=== PATIENT | female | born 1955 | race Caucasian/White ===

== ENCOUNTER 2018-01-20 11:27 | Observation (INO) ==
--- NOTE | 2018-01-20 11:38 | Emergency Department Note ---
Disposition Clinical Impression: ANANTH (acute kidney injury), Hyponatremia, Dehydration Crohns disease Qualifiers: Gastrointestinal tract location: unspecified location Digestive disease complication type: without complication Qualified Code(s): K50.90 - Crohn's disease, unspecified, without complications Diarrhea Qualifiers: Diarrhea type: unspecified type Qualified Code(s): R19.7 - Diarrhea, unspecified Disposition: Admitted As Inpatient Condition: Good Time of Disposition: 14:16 General Adult HPI - General Chief complaint: ED Abdominal Pain Stated complaint: abd pain, diarrhea Time Seen by Provider: 01/20/18 11:34 Source: patient Mode of arrival: ambulatory Limitations: no limitations Nursing Notes Reviewed: Yes Vital Signs Reviewed: Yes - History of Present Illness HPI Narrative: Male patient with a history of Crohn's disease presenting to emergency department with a four-day history of excessive watery stools. She denies any fevers or chills. No one else around her is sick. She denies any gross abdominal pain but does report an occasional cramping sensation when she is vomiting. She states that she has vomited around 4-5 times. She is insistent this is how her Crohn's presents. She states she has had to be admitted for her Crohn's before but this was with constipation related issues. Has reports that this is the most he is ever seen her have diarrhea. She has been trying to keep down bananas and Gatorade with no success. Patient is pleasant to talk to and does not have any gross complaints currently. We will get a basic lab workup on patient and provide her with fluids at this time. Pain Scale: 10 - Related Data Home Medications Medication Instructions Recorded Confirmed Cholecalciferol (Vitamin D3) 1,000 unit PO DAILY 02/26/15 01/20/18 [Vitamin D3] ClonazePAM [Klonopin] 1 mg PO BID 02/26/15 01/20/18 Estradiol [Divigel] 1 gm TD DAILY 02/26/15 01/20/18 Folic Acid 1 mg PO DAILY 02/26/15 01/20/18 Lisinopril [Zestril] 40 mg PO DAILY 02/26/15 01/20/18 Methotrexate [Otrexup] 15 mg PO WE 02/26/15 01/20/18 Venlafaxine HCl [Effexor Xr] 75 mg PO DAILY 02/26/15 01/20/18 Ranitidine HCl [Acid [employer]s] 150 mg PO BID 01/20/18 01/20/18 Vedolizumab [Entyvio (For 300 mg IV Q8W 01/20/18 01/20/18 Outpatient Infusion)] Allergies Allergy/AdvReac Type Severity Reaction Status Date / Time meperidine [From Demerol] AdvReac Vomiting Verified 01/20/18 11:32 All systems ED: reviewed and negative except as stated. Review of Systems: As Per HPI Constitutional: Denies: fever, chills ENT ED: Denies: congestion Cardiovascular: Denies: chest pain, syncope Respiratory: Denies: cough, dyspnea Gastrointestinal: Reports: abdominal pain (Occasional associated with retching.), nausea, vomiting, diarrhea (Watery nonbloody.) Genitourinary: Denies: urgency, dysuria, frequency Musculoskeletal: Reports: other (Cramping sensation throughout.). Denies: back pain, neck pain Integumentary: Denies: rash, abrasion Neurological: Denies: headache, weakness, numbness, paresthesias Past Medical History - Past Medical History Attestation: Yes The following information was validated with the patient. 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 Absent: scleral icterus - ENT ENT exam: normal exam, normal oropharynx, mucous membranes dry - Neck Neck exam: Present: normal inspection, full ROM, trachea midline - Chest Chest inspection: Present: normal inspection, symmetric chest wall rise. Absent: tenderness - Respiratory Respiratory exam: Present: normal lung sounds bilaterally. Absent: respiratory distress, accessory muscle use - Cardiovascular Cardiovascular exam: Present: regular rate, normal rhythm, normal heart sounds - Abdominal Exam Abdominal exam: Present: soft, Non-Tender. Absent: tenderness, distention, guarding, rebound, rigidity, organomegaly, Reynoso's sign, Rovsing's sign, tenderness at McBurney's Point - Extremities Exam Extremities exam: Present: normal inspection, full ROM, normal capillary refill. Absent: tenderness, pedal edema - Back Exam Back exam: Present: normal inspection, full ROM. Absent: tenderness - Neurological Exam Neurological exam: Present: alert, oriented X3 - Psychiatric Psychiatric exam: Present: normal affect, normal mood - Skin Skin exam: Present: warm, dry, intact, normal color. Absent: rash, cyanosis Course Course Narrative: Patient is insistent that she is not having a gross abdominal pain. She does report some cramping sensation especially when she is vomiting. She does have a history of Crohn's and a colectomy. She does not have an ostomy bag at this time. She is tachycardic on arrival. She also reports cramping to her whole body. The states he has been trying to keep bananas and Gatorade and the patient however she has been vomiting and has excessive amount of diarrhea so he believes that she may be dehydrated. She does appear clinically to be dehydrated. Mucous numbers are dry. Lab workup did show actually abnormalities such as hyponatremia. She does appear dehydrated and has a new AK eye. We did get a CT of patient's abdomen which did show some air-fluid levels in her lower abdomen. Patient's tachycardia did respond well to the fluid. She does have a history of hypertension and has not been taking her medications however she is mildly hypotensive at times. We will admit patient to the hospital for her new ANANTH as well as dehydration and hyponatremia. Vital Signs Pulse Rate 111 01/20/18 11:32 Respiratory Rate 18 01/20/18 11:32 Blood Pressure 103/58 01/20/18 11:32 O2 Sat by Pulse Oximetry 96 01/20/18 11:32 Temperature 98.3 F 01/20/18 11:48 Pulse Rate 93 01/20/18 12:55 Respiratory Rate 20 01/20/18 12:55 Blood Pressure 115/84 01/20/18 12:55 O2 Sat by Pulse Oximetry 100 01/20/18 12:55 Oxygen Delivery Oxygen Delivery Room Air Medical Decision Making - Medical Records Medical records reviewed: Yes I reviewed the patient's medical records. - Lab Data Lab results reviewed: Yes I reviewed the patient's lab results. Result diagrams: 01/20/18 11:47 01/20/18 11:47 Lab Results 01/20/18 01/20/18 01/20/18 Range/Units 11:47 11:47 11:48 WBC 13.3 H (4.3-11.1) K/mcL RBC 5.64 H (3.82-4.97) M/mcL Hgb 16.6 H (11.5-15.4) g/dL Hct 50.7 H (35.3-44.9) % MCV 89.9 (83.0-100.0) fL MCH 29.4 (28.0-33.3) pg MCHC 32.7 (31.6-35.5) g/dL RDW 14.3 (11.5-14.5) % Plt Count 457 H (140-400) K/mcL MPV 9.1 L (9.4-12.4) fL Immature Gran % 0.5 (0-4) % Seg Neutrophils % 76.9 % Lymphocytes % 11.4 % Monocytes % 10.3 % Eosinophils % 0.5 % Basophils % 0.4 % Neutrophils # 10.2 H (1.6-8.9) K/mcL Lymphocytes # 1.5 (0.6-4.6) K/mcL Monocytes # 1.4 H (0.0-1.3) K/mcL Eosinophils # 0.1 (0.0-0.6) K/mcL Basophils # 0.1 (0.0-0.2) K/mcL Sodium 130 L (136-145) mEq/L Potassium 3.8 (3.5-5.1) mEq/L Chloride 96 L (98-107) mEq/L Carbon Dioxide 19 L (23-29) mEq/L BUN 35 H (8-23) mg/dL Creatinine 1.93 H (0.60-1.20) mg/dL Est GFR ( Amer) 32 L (> 60) Est GFR (Non-Af Amer) 26 L (> 60) BUN/Creatinine Ratio 18 (6-26) Glucose 106 H (70-105) mg/dL Calculated Osmolality 278 L (280-300) Calcium 9.6 (8.6-10.3) mg/dL Total Bilirubin 1.7 H (0.3-1.0) mg/dL AST 41 H (13-39) Units/L ALT 28 (7-52) Units/L Alkaline Phosphatase 111 H (34-104) Units/L Serum Total Protein 9.0 H (6.4-8.9) g/dL Albumin 4.2 (3.5-5.7) g/dL Globulin 4.8 H (2.4-3.5) g/dL Albumin/Globulin Ratio 0.9 L (1.1-2.2) Lipase 92 H (11-82) Units/L Urine Color (Yellow) Urine Clarity (Clear) Urine pH (5.0-8.0) pH Units Ur Specific [place] (1.010-1.025) Urine Protein (Neg-Trace) mg/dL Urine Glucose (UA) (Normal) mg/dL Urine Ketones (Negative) mg/dL Urine Blood (Negative) Urine Nitrite (Negative) Urine Bilirubin (Negative) Urine Urobilinogen (Normal) mg/dL Ur Leukocyte Esterase (Negative) Urine Microscopic RBC (0-3) per hpf Urine Microscopic WBC (0-3) per hpf Urine Bacteria (None-Few) per hpf Hyaline Casts (None-Few) per lpf Ur Culture Indicated? (NO) 01/20/18 Range/Units 12:30 WBC (4.3-11.1) K/mcL RBC (3.82-4.97) M/mcL Hgb (11.5-15.4) g/dL Hct (35.3-44.9) % MCV (83.0-100.0) fL MCH (28.0-33.3) pg MCHC (31.6-35.5) g/dL RDW (11.5-14.5) % Plt Count (140-400) K/mcL MPV (9.4-12.4) fL Immature Gran % (0-4) % Seg Neutrophils % % Lymphocytes % % Monocytes % % Eosinophils % % Basophils % % Neutrophils # (1.6-8.9) K/mcL Lymphocytes # (0.6-4.6) K/mcL Monocytes # (0.0-1.3) K/mcL Eosinophils # (0.0-0.6) K/mcL Basophils # (0.0-0.2) K/mcL Sodium (136-145) mEq/L Potassium (3.5-5.1) mEq/L Chloride (98-107) mEq/L Carbon Dioxide (23-29) mEq/L BUN (8-23) mg/dL Creatinine (0.60-1.20) mg/dL Est GFR ( Amer) (> 60) Est GFR (Non-Af Amer) (> 60) BUN/Creatinine Ratio (6-26) Glucose (70-105) mg/dL Calculated Osmolality (280-300) Calcium (8.6-10.3) mg/dL Total Bilirubin (0.3-1.0) mg/dL AST (13-39) Units/L ALT (7-52) Units/L Alkaline Phosphatase (34-104) Units/L Serum Total Protein (6.4-8.9) g/dL Albumin (3.5-5.7) g/dL Globulin (2.4-3.5) g/dL Albumin/Globulin Ratio (1.1-2.2) Lipase (11-82) Units/L Urine Color Dark Yellow (Yellow) Urine Clarity Turbid A (Clear) Urine pH 5.0 (5.0-8.0) pH Units Ur Specific [place] 1.026 H (1.010-1.025) Urine Protein 100 H (Neg-Trace) mg/dL Urine Glucose (UA) Normal (Normal) mg/dL Urine Ketones Negative (Negative) mg/dL Urine Blood Moderate H (Negative) Urine Nitrite Negative (Negative) Urine Bilirubin Negative (Negative) Urine Urobilinogen Normal (Normal) mg/dL Ur Leukocyte Esterase Negative (Negative) Urine Microscopic RBC 0-3 (0-3) per hpf Urine Microscopic WBC 0-3 (0-3) per hpf Urine Bacteria Few (None-Few) per hpf Hyaline Casts Few (None-Few) per lpf Ur Culture Indicated? NO (NO) - Radiology Data Radiology results reviewed: Yes I reviewed the patient's radiology results. Abdomen/Pelvis CT 01/20/18 12:45 IMPRESSION: 1. Fluid in the colon and rectum compatible with the history of diarrhea. No colonic wall thickening to suggest colitis 2. Status post partial colectomy and hysterectomy 3. Air-fluid collections within a midline abdominal incision are of uncertain significance. Correlate with any findings of wound infection D/ / Darrel Pritchard MD / Darrel Pritchard MD Interpreting Provider: Darrel Pritchard MD - EKG Data EKG #1 EKG attestation: Yes I reviewed and interpreted this EKG.
[2018-01-20] MEDS ORDERED: Ondansetron 4 MG/2 ML VIAL IVP ONE (11:48)
[2018-01-20] MEDS ORDERED: Hyoscyamine SL 0.125 MG TAB.SUBL SL STA (11:48)
[2018-01-20] MEDS ORDERED: 0.9 % Sodium Chloride 1,000 ML IVC ONE ×2 (11:48→12:45)
[2018-01-20 12:05] LABS: Basophils # 0.1 K/mcL (0.0-0.2); Basophils % 0.4 %; Eosinophils # 0.1 K/mcL (0.0-0.6); Eosinophils % 0.5 %; Hematocrit 50.7 % (35.3-44.9); Hemoglobin 16.6 g/dL (11.5-15.4); Immature Granulocytes % 0.5 % (0-4); Lymphocytes # 1.5 K/mcL (0.6-4.6); Lymphocytes % 11.4 %; Mean Corpuscular HGB Conc 32.7 g/dL (31.6-35.5); Mean Corpuscular Hemoglobin 29.4 pg (28.0-33.3); Mean Corpuscular Volume 89.9 fL (83.0-100.0); Mean Platelet Volume 9.1 fL (9.4-12.4); Monocytes # 1.4 K/mcL (0.0-1.3); Monocytes % 10.3 %; Neutrophils # 10.2 K/mcL (1.6-8.9); Platelet Count 457 K/mcL (140-400); Red Blood Count 5.64 M/mcL (3.82-4.97); Red Cell Distribution Width 14.3 % (11.5-14.5); Segmented Neutrophils % 76.9 %
[2018-01-20 12:21] LABS: Albumin 4.2 g/dL (3.5-5.7); Albumin/Globulin Ratio 0.9 (1.1-2.2); Bilirubin,Total 1.7 mg/dL (0.3-1.0); Calcium 9.6 mg/dL (8.6-10.3); Globulin 4.8 g/dL (2.4-3.5); Potassium 3.8 mEq/L (3.5-5.1)
[2018-01-20 12:45] LABS: Bilirubin,Urine Negative (Negative); Blood,Urine Moderate (Negative); Clarity,Urine Turbid (Clear); Color,Urine Dark Yellow (Yellow); Glucose,Urine (UA) Normal (Normal); Ketones,Urine Negative (Negative); Leukocyte Esterase,Urine Negative (Negative); Nitrite,Urine Negative (Negative); Protein,Urine 100 mg/dL (Neg-Trace); Specific Gravity,Urine 1.026 (1.010-1.025); Urobilinogen,Urine Normal (Normal)
[2018-01-20 12:55] LABS: Hyaline Casts,Urine Few per lpf (None-Few); RBC,Urine 0-3 per hpf (0-3); WBC,Urine 0-3 per hpf (0-3)
[2018-01-20 12:56] LABS: Bacteria,Urine Few per hpf (None-Few)
--- NOTE | 2018-01-20 14:28 | Emergency Department Note ---
Disposition Clinical Impression: ANANTH (acute kidney injury), Hyponatremia, Dehydration Crohns disease Qualifiers: Gastrointestinal tract location: unspecified location Digestive disease complication type: without complication Qualified Code(s): K50.90 - Crohn's disease, unspecified, without complications Diarrhea Qualifiers: Diarrhea type: unspecified type Qualified Code(s): R19.7 - Diarrhea, unspecified Disposition: Admitted As Inpatient Condition: Good Forms: ED Satisfaction Letter, Work/School Release General Adult HPI - General Chief complaint: ED Abdominal Pain Stated complaint: abd pain, diarrhea Time Seen by Provider: 01/20/18 11:34 Source: patient Mode of arrival: ambulatory Limitations: no limitations - History of Present Illness Pain Scale: 10 - Related Data Home Medications Medication Instructions Recorded Confirmed Adalimumab [Humira Pen Crohn-Uc-Hs Q2W 02/26/15 Starter] Amoxicillin/Clavulanate [Augmentin] 875 mg PO BIDWM 02/26/15 02/26/15 Cholecalciferol (Vitamin D3) 1,000 unit PO DAILY 02/26/15 02/26/15 [Vitamin D3] ClonazePAM [Klonopin] 1 mg PO BID 02/26/15 02/26/15 Esomeprazole Magnesium [Nexium] 40 mg PO DAILY 02/26/15 02/26/15 Estradiol [Divigel] 1 gm TD DAILY 02/26/15 02/26/15 Folic Acid 1 mg PO DAILY 02/26/15 02/26/15 Lisinopril [Zestril] 40 mg PO DAILY 02/26/15 02/26/15 Methotrexate [Otrexup] 15 mg PO QWEEK 02/26/15 02/26/15 Omega3,5,6,7,9 No.1/[place] Oil 1 cap PO DAILY 02/26/15 02/26/15 [Complete [place] Softgel] Venlafaxine HCl [Effexor Xr] 75 mg PO DAILY 02/26/15 02/26/15 Previous Rx's Medication Instructions Recorded Metoprolol [Lopressor] 25 mg PO BID #30 tablet 03/03/15 Allergies Allergy/AdvReac Type Severity Reaction Status Date / Time meperidine [From Demerol] AdvReac Vomiting Verified 01/20/18 11:32 Constitutional: Denies: fever, chills Past Medical History - Past Medical History Medical history: Reports: hypertension, kidney stones, other (CROHN'S DISEASE) Surgical history: Reports: colectomy, KEMAR/BSO Psychiatric history: Reports: anxiety 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, bilateral tubal ligation - Social History Smoking Status: Never smoker Smokeless Tobacco Status: No Alcohol use: Reports: none Drug use: Reports: none Physical Exam - General Limitations: no limitations General appearance: alert, in no apparent distress Course Vital Signs Pulse Rate 111 01/20/18 11:32 Respiratory Rate 18 01/20/18 11:32 Blood Pressure 103/58 01/20/18 11:32 O2 Sat by Pulse Oximetry 96 01/20/18 11:32 Temperature 98.3 F 01/20/18 11:48 Pulse Rate 93 01/20/18 12:55 Respiratory Rate 20 01/20/18 12:55 Blood Pressure 115/84 01/20/18 12:55 O2 Sat by Pulse Oximetry 100 01/20/18 12:55 Oxygen Delivery Oxygen Delivery Room Air Medical Decision Making - Lab Data Result diagrams: 01/20/18 11:47 01/20/18 11:47 Lab Results 01/20/18 01/20/18 01/20/18 Range/Units 11:47 11:47 11:48 WBC 13.3 H (4.3-11.1) K/mcL RBC 5.64 H (3.82-4.97) M/mcL Hgb 16.6 H (11.5-15.4) g/dL Hct 50.7 H (35.3-44.9) % MCV 89.9 (83.0-100.0) fL MCH 29.4 (28.0-33.3) pg MCHC 32.7 (31.6-35.5) g/dL RDW 14.3 (11.5-14.5) % Plt Count 457 H (140-400) K/mcL MPV 9.1 L (9.4-12.4) fL Immature Gran % 0.5 (0-4) % Seg Neutrophils % 76.9 % Lymphocytes % 11.4 % Monocytes % 10.3 % Eosinophils % 0.5 % Basophils % 0.4 % Neutrophils # 10.2 H (1.6-8.9) K/mcL Lymphocytes # 1.5 (0.6-4.6) K/mcL Monocytes # 1.4 H (0.0-1.3) K/mcL Eosinophils # 0.1 (0.0-0.6) K/mcL Basophils # 0.1 (0.0-0.2) K/mcL Sodium 130 L (136-145) mEq/L Potassium 3.8 (3.5-5.1) mEq/L Chloride 96 L (98-107) mEq/L Carbon Dioxide 19 L (23-29) mEq/L BUN 35 H (8-23) mg/dL Creatinine 1.93 H (0.60-1.20) mg/dL Est GFR ( Amer) 32 L (> 60) Est GFR (Non-Af Amer) 26 L (> 60) BUN/Creatinine Ratio 18 (6-26) Glucose 106 H (70-105) mg/dL Calculated Osmolality 278 L (280-300) Calcium 9.6 (8.6-10.3) mg/dL Total Bilirubin 1.7 H (0.3-1.0) mg/dL AST 41 H (13-39) Units/L ALT 28 (7-52) Units/L Alkaline Phosphatase 111 H (34-104) Units/L Serum Total Protein 9.0 H (6.4-8.9) g/dL Albumin 4.2 (3.5-5.7) g/dL Globulin 4.8 H (2.4-3.5) g/dL Albumin/Globulin Ratio 0.9 L (1.1-2.2) Lipase 92 H (11-82) Units/L Urine Color (Yellow) Urine Clarity (Clear) Urine pH (5.0-8.0) pH Units Ur Specific [place] (1.010-1.025) Urine Protein (Neg-Trace) mg/dL Urine Glucose (UA) (Normal) mg/dL Urine Ketones (Negative) mg/dL Urine Blood (Negative) Urine Nitrite (Negative) Urine Bilirubin (Negative) Urine Urobilinogen (Normal) mg/dL Ur Leukocyte Esterase (Negative) Urine Microscopic RBC (0-3) per hpf Urine Microscopic WBC (0-3) per hpf Urine Bacteria (None-Few) per hpf Hyaline Casts (None-Few) per lpf Ur Culture Indicated? (NO) 01/20/18 Range/Units 12:30 WBC (4.3-11.1) K/mcL RBC (3.82-4.97) M/mcL Hgb (11.5-15.4) g/dL Hct (35.3-44.9) % MCV (83.0-100.0) fL MCH (28.0-33.3) pg MCHC (31.6-35.5) g/dL RDW (11.5-14.5) % Plt Count (140-400) K/mcL MPV (9.4-12.4) fL Immature Gran % (0-4) % Seg Neutrophils % % Lymphocytes % % Monocytes % % Eosinophils % % Basophils % % Neutrophils # (1.6-8.9) K/mcL Lymphocytes # (0.6-4.6) K/mcL Monocytes # (0.0-1.3) K/mcL Eosinophils # (0.0-0.6) K/mcL Basophils # (0.0-0.2) K/mcL Sodium (136-145) mEq/L Potassium (3.5-5.1) mEq/L Chloride (98-107) mEq/L Carbon Dioxide (23-29) mEq/L BUN (8-23) mg/dL Creatinine (0.60-1.20) mg/dL Est GFR ( Amer) (> 60) Est GFR (Non-Af Amer) (> 60) BUN/Creatinine Ratio (6-26) Glucose (70-105) mg/dL Calculated Osmolality (280-300) Calcium (8.6-10.3) mg/dL Total Bilirubin (0.3-1.0) mg/dL AST (13-39) Units/L ALT (7-52) Units/L Alkaline Phosphatase (34-104) Units/L Serum Total Protein (6.4-8.9) g/dL Albumin (3.5-5.7) g/dL Globulin (2.4-3.5) g/dL Albumin/Globulin Ratio (1.1-2.2) Lipase (11-82) Units/L Urine Color Dark Yellow (Yellow) Urine Clarity Turbid A (Clear) Urine pH 5.0 (5.0-8.0) pH Units Ur Specific [place] 1.026 H (1.010-1.025) Urine Protein 100 H (Neg-Trace) mg/dL Urine Glucose (UA) Normal (Normal) mg/dL Urine Ketones Negative (Negative) mg/dL Urine Blood Moderate H (Negative) Urine Nitrite Negative (Negative) Urine Bilirubin Negative (Negative) Urine Urobilinogen Normal (Normal) mg/dL Ur Leukocyte Esterase Negative (Negative) Urine Microscopic RBC 0-3 (0-3) per hpf Urine Microscopic WBC 0-3 (0-3) per hpf Urine Bacteria Few (None-Few) per hpf Hyaline Casts Few (None-Few) per lpf Ur Culture Indicated? NO (NO) Attestation Statement - Attestation Attestation: I examined this patient and my medical decision-making was reviewed with the Resident Physician, Dr. Mcgee. I agree with the documented findings, disposition and treatment plan as described except to the extent set forth below. Patient is a 62-year-old female with a history of Crohn's disease managed out of the [facility] who presents today with complaints of a four-day history of nausea vomiting diarrhea with watery stools. Patient's complaining of just some generalized weakness and fatigue no focal symptoms, denies any chest pain pressure or heaviness, no shortness of breath, no preceding URI or cough, denies any urinary symptoms or flank pain. Patient currently denies any associated abdominal pains that she is appreciated occasional cramping preceding her vomiting episodes. states she has been attempting fluids at home and has been trying Gatorade and bananas but she has not been able tolerate anything by mouth. Patient has had colectomy in the past secondary to her Crohn's. Patient is currently on methotrexate in so receives IV infusions every 4-6 weeks in [place] by her GI physician. I agree with patient's physical exam findings as documented. Patient with mild tachycardia but stable blood pressure and afebrile on arrival. On my exam patient's abdomen was soft nontender nondistended positive bowel sounds no perineal signs were appreciated no flank tenderness appreciated. Patient was in no acute distress. Patient underwent full lab evaluation urinalysis and CT imaging of her abdomen and pelvis. Patient received 2 L of IV fluids with antiemetics and anti- spasmodics administered for which she is received significant relief. Patient has had no vomiting while in the emergency department. Patient's labs show evidence of [place] I likely secondary to dehydration or prerenal changes. CT abdomen and pelvis was negative for any acute intra-abdominal pathology or obstruction. No bowel wall thickening. Patient will be admitted for ongoing IV hydration antiemetics and serial abdominal exams. Case will be discussed with the hospitalist service patient remains hemodynamically stable at this time and has had no vomiting up to this point in the ED.
[2018-01-20] MEDS ORDERED: 0.9 % Sodium Chloride 1,000 ML IVC SCH (15:00)
[2018-01-20] MEDS ORDERED: Ondansetron 4 MG/2 ML VIAL IVP PRN (16:16)
[2018-01-20] MEDS ORDERED: Naloxone 0.4 MG/ML INJ IVP PRN (16:16)
--- NOTE | 2018-01-20 16:29 | Internal Med History&Physical ---
Date of Encounter: 01/20/18 Time of Encounter: 15:35 Internal Medicine - H&P: HPI Chief complaint: Diarrhea Admitted From: Home Plans for Post Hospital Care: Home History of present illness: Ms. Nicole is a 62 year old female present to ER for nausea vomiting and diarrhea for 4 days. Past medical history is significant for hypertension, Crohn disease. Patient has history of Crohn disease for about 41 years, with chronic diarrhea on and off. In last 4 days, patient said the frequency of diarrhea has increased, patient also has increased the nausea and have vomited 4 times. The vomiting is stomach content, no blood in it. Patient denies fever, runny nose, or cough. She denies abdominal pain. Patient starts to have muscle ache and spasm, which she experienced previously when she has dehydration. Patient came to ER for further management. In the emergency room, she was found acute renal failure with elevated creatinine to 1.9. Patient was given IV hydration and her symptoms have significantly improved after hydration. Patient working with [facility] for her Crohn disease and was on Entyvio, generally doing well and has appointment for next Monday. Pt has multiple abd surgeries and last hany carie was 12 years ago, denies incision pain/redness/tenderness. Past Med Surg Social Fam HX - Past Medical History Medical history: hypertension, kidney stones, other (CROHN'S DISEASE) Additional medical history: IBD Psychiatric history: anxiety - Past Surgical History Surgical History: colectomy, KEMAR/BSO Additional surgical history: Colon removal/ reversal. - Social History Smoking Status: Never smoker Smokeless Tobacco Status: No Alcohol use: none Drug use: none - Family History Mother Family Member Ethnicity: Non- Living Status: Hx Family Cardiac Disorders: No Hx Family Respiratory Disorders: No Hx Family Cancer: No Hx Family GI Disorders: No Hx Family Endocrine Disorder: No Hx Family Neuromuscular Disorders: No Hx Family Neurologic Disorders: Yes (Aneursym) Hx Family HEENT Disorders: No Hx Family Autoimmune Disorders: No Father Living Status: Hx Family Neurologic Disorders: Yes (PARKINSONS) Internal Medicine - H&P: Meds Cholecalciferol (Vitamin D3) [Vitamin D3] 1,000 unit PO DAILY 02/26/15 [History] ClonazePAM [Klonopin] 1 mg PO BID 02/26/15 [History] Estradiol [Divigel] 1 gm TD DAILY 02/26/15 [History] Folic Acid 1 mg PO DAILY 02/26/15 [History] Lisinopril [Zestril] 40 mg PO DAILY 02/26/15 [History] Methotrexate [Otrexup] 15 mg PO WE 02/26/15 [History] Venlafaxine HCl [Effexor Xr] 75 mg PO DAILY 02/26/15 [History] Ranitidine HCl [Acid Ski Lift Operator] 150 mg PO BID 01/20/18 [History] Vedolizumab [Entyvio (For Outpatient Infusion)] 300 mg IV Q8W 01/20/18 [History] Allergy/AdvReac Type Severity Reaction Status Date / Time meperidine [From Demerol] AdvReac Vomiting Verified 01/20/18 11:32 All Systems PM: A 10-system review of systems was performed and is negative for pertinent findings except as documented above in the HPI. - Constitutional Vitals: Temp Pulse Resp BP Pulse Ox 98.3 F 87 18 134/59 96 01/20/18 11:48 01/20/18 15:00 01/20/18 15:46 01/20/18 15:46 01/20/18 15:00 General appearance: Present: A&O X 3, morbidly obese, no acute distress, answers questions appropriately Exam: in NAD - Head Head exam: Present: atraumatic, normocephalic - Eye Eye exam: Present: PERRL, conjuntiva pink, sclera anicteric Pupils: Present: PERRL - Neck Neck exam general surgery: Present: supple, trachea midline. Absent: lymphadenopathy - Respiratory Respiratory exam: Present: CTAB. Absent: accessory muscle use, rales, rhonchi, wheezes - Cardiovascular Cardiovascular exam: Present: RRR, +S1, +S2. Absent: diastolic murmur, gallop, rubs, systolic murmur - GI/Abdominal GI/Abdominal exam: Present: normal bowel sounds, soft, no peritoneal signs. Absent: distended, tenderness - Extremities Exam Extremities exam: Present: warm, radial pulses palpable and symmetrical. Absent: calf tenderness, cyanotic, pedal edema - Neurological Exam Neurological exam: Present: CN II-XII intact, oriented X3, no focal deficits. Absent: pronater drift, facial droop, speech deficit - Skin Skin exam: Present: dry, intact Internal Med - H&P Results - Labs CBC & Chem 7: 01/20/18 11:47 01/20/18 11:47 Labs: Short CBC 01/20/18 Range/Units 11:47 WBC 13.3 H (4.3-11.1) K/mcL Hgb 16.6 H (11.5-15.4) g/dL Hct 50.7 H (35.3-44.9) % Plt Count 457 H (140-400) K/mcL Neutrophils # 10.2 H (1.6-8.9) K/mcL BMP 01/20/18 11:47 Sodium 130 L Potassium 3.8 Chloride 96 L Carbon Dioxide 19 L BUN 35 H Creatinine 1.93 H Glucose 106 H Calcium 9.6 Liver Function 01/20/18 Range/Units 11:47 Total Bilirubin 1.7 H (0.3-1.0) mg/dL AST 41 H (13-39) Units/L ALT 28 (7-52) Units/L Alkaline Phosphatase 111 H (34-104) Units/L Albumin 4.2 (3.5-5.7) g/dL Urine 01/20/18 Range/Units 12:30 Urine Color Dark Yellow (Yellow) Urine Clarity Turbid A (Clear) Urine pH 5.0 (5.0-8.0) pH Units Ur Specific [place] 1.026 H (1.010-1.025) Urine Protein 100 H (Neg-Trace) mg/dL Urine Glucose (UA) Normal (Normal) mg/dL - Impressions ITS Impressions Abdomen/Pelvis CT 01/20/18 12:45 IMPRESSION: 1. Fluid in the colon and rectum compatible with the history of diarrhea. No colonic wall thickening to suggest colitis 2. Status post partial colectomy and hysterectomy 3. Air-fluid collections within a midline abdominal incision are of uncertain significance. Correlate with any findings of wound infection D/ / Darrel Pritchard MD / Darrel Pritchard MD Interpreting Provider: Darrel Pritchard MD - Assessment and plan (1) Crohns disease Current Visit: Yes Status: Chronic Assessment and plan: Patient has Crohns disease for many years, [facility] Patient said she will continue outpatient follow-up with [place]. Came to our ER for acute dehydration. - Will not change Crohns treatment regime at this point, if pt's symptoms improved, will d/c her home and cont [facility] follow up. If not improve or getting worse, consider GI consult. Qualifiers: Gastrointestinal tract location: unspecified location Digestive disease complication type: without complication Qualified Code(s): K50.90 - Crohn's disease, unspecified, without complications (2) DVT prophylaxis Current Visit: No Status: Acute Assessment and plan: Patient is expected of short hospitalization. Ambulating well. No anticoagulation placed. (3) Hypertension Current Visit: No Status: Chronic Assessment and plan: BP is not high. Hold home medication lisinopril because of ANANTH. Qualifiers: Hypertension type: essential hypertension Qualified Code(s): I10 - Essential (primary) hypertension (4) Diarrhea Current Visit: Yes Status: Acute Assessment and plan: Chronic diarrhea, nonbloody, due to Crohns Disease. continue hydration patient. Symptomatic treatment as needed. Qualifiers: Diarrhea type: unspecified type Qualified Code(s): R19.7 - Diarrhea, unspecified (5) ANANTH (acute kidney injury) Current Visit: Yes Status: Acute Assessment and plan: Most likely due to dehydration. Will continue IV fluid and closely follow-up renal function. Avoid nephrotoxic medications. CT abd done, no hydronephorosis. (6) Dehydration Current Visit: Yes Status: Acute Assessment and plan: Continue IV fluid. Correct electrolytes abnormality. Zofran when necessary for nausea. - Time Spent With Patient Total time spent is greater than 50% in coordination of care (as documented) at patient's floor/unit and/or counseling patient: 30 min 25 - 35 minutes
[2018-01-20 16:37] LABS: Magnesium 2.4 mg/dL (1.6-2.6); Phosphorous 5.7 mg/dL (2.7-4.5)
[2018-01-20] MEDS: Ringers Solution, Lactated 1,000 ML IVC SCH (18:27)
[2018-01-20] MEDS: clonazePAM 1 MG TABLET PO SCH (20:17)
[2018-01-20] MEDS: Famotidine 20 MG TABLET PO SCH (20:17)
[2018-01-21] MEDS: Ringers Solution, Lactated 1,000 ML IVC SCH (02:07)
[2018-01-21 04:50] LABS: Basophils % 0.4 %; Eosinophils # 0.1 K/mcL (0.0-0.6); Eosinophils % 0.9 %; Hematocrit 45.6 % (35.3-44.9); Immature Granulocytes % 0.3 % (0-4); Lymphocytes # 0.9 K/mcL (0.6-4.6); Lymphocytes % 8.8 %; Mean Corpuscular HGB Conc 32.5 g/dL (31.6-35.5); Mean Corpuscular Hemoglobin 29.4 pg (28.0-33.3); Mean Corpuscular Volume 90.5 fL (83.0-100.0); Mean Platelet Volume 9.2 fL (9.4-12.4); Monocytes # 0.9 K/mcL (0.0-1.3); Monocytes % 8.9 %; Platelet Count 370 K/mcL (140-400); Red Blood Count 5.04 M/mcL (3.82-4.97); Segmented Neutrophils % 80.7 %
[2018-01-21 04:52] LABS: Hemoglobin 14.8 g/dL (11.5-15.4)
[2018-01-21 05:09] LABS: Calcium 8.3 mg/dL (8.6-10.3); Phosphorous 4.2 mg/dL (2.7-4.5); Potassium 3.8 mEq/L (3.5-5.1)
[2018-01-21 07:13] VITALS: BP 107/73
[2018-01-21] MEDS ORDERED: Venlafaxine XR (24 HR) 75 MG CAP.ER.24H PO SCH (09:00)
[2018-01-21] MEDS ORDERED: Cholecalciferol (D-3) 1,000 UNIT TABLET PO SCH (09:00)
[2018-01-21] MEDS ORDERED: Folic Acid 1 MG TABLET PO SCH (09:00)
[2018-01-21] MEDS: Famotidine 20 MG TABLET PO SCH (09:05)
[2018-01-21] MEDS: clonazePAM 1 MG TABLET PO SCH (09:05)
--- NOTE | 2018-01-21 10:02 | Discharge Summary ---
- NOTES TO OUTPATIENT PROVIDER Notes to Outpatient Provider: 1. Cont [facility] f/u for the Crohns Disease. Date of Encounter: 01/21/18 Time of Encounter: 09:00 - Discharge Diagnosis (1) Crohns disease Priority: Secondary Status: Chronic Qualifiers: Gastrointestinal tract location: unspecified location Digestive disease complication type: without complication Qualified Code(s): K50.90 - Crohn's disease, unspecified, without complications (2) DVT prophylaxis Priority: Secondary Status: Acute (3) Hypertension Priority: Secondary Status: Chronic Qualifiers: Hypertension type: essential hypertension Qualified Code(s): I10 - Essential (primary) hypertension (4) Diarrhea Priority: Secondary Status: Acute Qualifiers: Diarrhea type: unspecified type Qualified Code(s): R19.7 - Diarrhea, unspecified (5) ANANTH (acute kidney injury) Priority: Primary Status: Acute (6) Dehydration Priority: Primary Status: Acute (7) Morbid obesity Priority: Secondary Status: Acute Assessment and Plan: Cont lifestyle modification as outpatient Hospital course: Ms. Nicole is a 62 year old female present to ER for dehydration caused by C rohns disease diarrhea and acute renal failure. Patient was placed on IV fluid and her condition is getting improved. Her renal function get back to normal level. Patient can eat and drink without further nausea vomiting. Will discharge patient home today and continue follow-up with [facility] GI specialist for Crohns disease. I have seen and examined the patient today. Patient said still mild nausea but no more vomiting. Patient can eat and drink with acceptable appetite. Vitals are stable. Her diarrhea is about at her baseline. Patient has no more muscle ache or spasm. Lab reviewed, normal renal function, normal potassium, magnesium, and phosphorus level. Patient will DC home and continue follow-up as outpatient. As BP is not high, will continue hold lisinopril, patient will check blood pressure at home and may restart if BP is over 130/80. Patient was prescribed by mouth Zofran as needed for nausea. Discharge discussed with: patient - Time Spent with Patient Total time spent providing and/or coordinating discharge services: 30 min Less than 30 minutes - Discharge Medications Home Medications: Cholecalciferol (Vitamin D3) [Vitamin D3] 1,000 unit PO DAILY 02/26/15 [History] ClonazePAM [Klonopin] 1 mg PO BID 02/26/15 [History] Estradiol [Divigel] 1 gm TD DAILY 02/26/15 [History] Folic Acid 1 mg PO DAILY 02/26/15 [History] Methotrexate [Otrexup] 15 mg PO WE 02/26/15 [History] Venlafaxine HCl [Effexor Xr] 75 mg PO DAILY 02/26/15 [History] Ranitidine HCl [Acid Launderer Hand] 150 mg PO BID 01/20/18 [History] Vedolizumab [Entyvio (For Outpatient Infusion)] 300 mg IV Q8W 01/20/18 [History] Ondansetron HCl [Zofran] 4 mg PO Q8HR PRN 3 Days #12 tab 01/21/18 [Rx] Allergies/Adverse Reactions: Allergy/AdvReac Type Severity Reaction Status Date / Time meperidine [From Demerol] AdvReac Vomiting Verified 01/20/18 11:32 Date of admission: 01/20/18 15:39 Primary care physician: Jessica Mcdonough Discharging clinician: Gil Hadley Anticipated date of discharge: 01/21/18 - Constitutional Vitals: Temp Pulse Resp BP Pulse Ox 98.1 F 110 18 107/73 94 01/21/18 07:12 01/21/18 07:12 01/21/18 07:12 01/21/18 07:12 01/21/18 07:12 General appearance: Present: A&O X 3, morbidly obese, no acute distress, answers questions appropriately Exam: in NAD - Head Head exam: Present: atraumatic, normocephalic - Eye Eye exam: Present: PERRL, conjuntiva pink, sclera anicteric Pupils: Present: PERRL - Neck Neck exam general surgery: Present: supple, trachea midline. Absent: lymphadenopathy - Respiratory Respiratory exam: Present: CTAB. Absent: accessory muscle use, rales, rhonchi, wheezes - Cardiovascular Cardiovascular exam: Present: RRR, +S1, +S2. Absent: diastolic murmur, gallop, rubs, systolic murmur - GI/Abdominal GI/Abdominal exam: Present: normal bowel sounds, soft, no peritoneal signs. Absent: distended, tenderness - Extremities Exam Extremities exam: Present: warm, radial pulses palpable and symmetrical. Absent : calf tenderness, cyanotic, pedal edema - Neurological Exam Neurological exam: Present: CN II-XII intact, oriented X3, no focal deficits. Absent: pronater drift, facial droop, speech deficit - Skin Skin exam: Present: dry, intact - Patient Status Disposition: Home, Self-Care Condition: Good Functional capacity at discharge: independent ambulation Overall status at discharge: patient is back to baseline - Discharge Instructions Instructions: Dehydration (DC), Acute Kidney Injury (DC), Hyponatremia (DC) Follow Up With: Jessica Mcdonough [Primary Care Provider] - (Please call primary care provider monday01/22/18 for follow up appointment.) - Diet and Activity Activity: increase activity as tolerated Diet: advance to your usual diet
== END 2018-01-21 11:15 | disposition home or self-care (01) ==
LOC: EMEROOARM 11:27 → 2ANU 11:27
PROVIDERS: ADMIT Internal Medicine; ATTEND Internal Medicine